=== PATIENT | female | born 1990 | race African-American/Black ===

== ENCOUNTER 2016-10-09 11:43 | Emergency (ER) | payer OTHER ==
[2016-10-09 12:36] VITALS: BP 137/82; PULSE 97; RESP 18; O2SAT 98
--- NOTE | 2016-10-09 13:17 | UCPHY ---
H & P Time Seen by Provider: 10/09/16 13:01 Patient Type: New HPI/ROS: This patient reports buttock pain over the past 2 weeks that started after she was doing squat exercises is not sure if it is related access but she does report with some regularity without pain. She was not using weights with squats. She reports mostly tenderness to the area. She explains that it has mild pain at baseline but quite tender to touch along the gluteal fold region on the right side. She has never had this pain before. She has tried ibuprofen Tylenol with partial improvement. She notes no other clear exacerbating factors. Past Medical/Surgical History: Otherwise healthy Smoking Status: Never smoked Physical Exam: Physical Exam Vital signs are normal. General: Pleasant young female No acute distress Eyes: Pupils equal and react to light. Extraocular motions are intact. Lungs: No respiratory distress. Cardiac: Brisk capillary refill is intact throughout. Pulses are 2+ and symmetric in the affected extremity. Skin: No rash or pallor. 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 There is no sacral tenderness. No tenderness to the hips or to the gluteus anibal/medius muscle region. No sciatic tenderness. Neuro: Alert and oriented x3 with no sensorimotor deficits. Initial differential diagnosis: Potential early abscess that is not yet evident in terms of skin changes, contusion, muscle strain Constitutional: Initial Vital Signs Heart Rate 97 10/09/16 12:33 Respiratory Rate 18 10/09/16 12:33 Blood Pressure 137/82 H 10/09/16 12:33 O2 Sat (%) 98 10/09/16 12:33 O2 Delivery Mode Room Air Allergies/Adverse Reactions: No Known Allergies Allergy (Unverified 10/09/16 12:32) Home Medications: Medication Instructions Recorded Doxycycline Hyclate [Vibramycin 100 mg PO BID #20 cap 10/09/16 100 MG (*)] Ibuprofen [Motrin (*)] 600 mg PO Q6 PRN #30 tab 10/09/16 MDM/Departure - MDM ED Course/Re-evaluation: I suspect this patient has a very early abscess that is deep but not cause unclear fluctuance at this point. I suggested that we start her on doxycycline use inflatable donut and NSAIDs - Depart Disposition: Home, Routine, Self-Care Clinical Impression: Acute buttock pain Condition: Good Additional Instructions: Diagnosis: Right-sided buttock pain The area that is tender as a subtle fullness and is a site that commonly develops small abscesses though none is evident at the surface at this point there may be a deeper infection. Plan: Warm packs Doxycycline antibiotic Inflatable donut for comfort, ibuprofen and Tylenol as well. Return for any significant worsening despite treatment plan. Prescriptions: Ibuprofen [Motrin (*)] 600 mg PO Q6 PRN #30 tab PRN Reason: Pain Doxycycline Hyclate [Vibramycin 100 MG (*)] 100 mg PO BID #20 cap Referrals: NONE *PRIMARY CARE P,. [Primary Care Provider] - As per Instructions Becky Colbert MD [Medical Doctor] - As per Instructions - PQRS PQRS Measurement: NA
== END 2016-10-09 13:35 | disposition home or self-care (01) ==
LOC: CED 11:43
DX: M79.1 Myalgia (principal); R22.2 Localized swelling, mass and lump, trunk
CPT/HCPCS: G0463-PO